=== PATIENT | female | born 1960 | race Two or more races ===

== ENCOUNTER 2016-07-10 23:16 | Emergency (ER) | payer OTHER ==
[~2016-07-10] VITALS: Ht 167.6 cm; Wt 63.5 kg
[~2016-07-10 23:16] MED LIST: HYDR25TA4 PO; MELO-264 PO
--- NOTE | 2016-07-10 23:45 | NUR ---
56 YO FEMALE BB FAMILY. PT IS ALERT X 3, C/O HIGH BP ALL DAY WITH HEADACHE/ NECK PAIN. PT STATES SHE TOOK HER USUAL LISINOPRIL HCTZ 20-25 TODAY, HER BP WAS STILL HIGH, THEN TOOK A SECOND DOSE. PT DENIES ANY CHEST PAIN, N/V, SOB. PT AMBULATED TO ER BED WITH STEADY GAIT, SKIN WARM AND DRY, RR EVENA N DUNLABORED. AWAITING ORDERS FROM PROVIDER, WILL CONTINUE TO MONITOR
--- NOTE | 2016-07-10 23:59 | NUR ---
URINE SAMPLE OBTAINED AND SENT TO LAB
--- NOTE | 2016-07-11 00:15 | NUR ---
DAUGHTER AT BEDSIDE TO TRANSLATE. PT STATES SHE TOOK LISINOPRIL 20-25MG 1 TAB PO AT 7PM
[2016-07-11] MEDS ORDERED: HYDROCODONE/APAP 5/325MG 1 EACH TABLET ONE (00:31)
[2016-07-11] MEDS ORDERED: IBUPROFEN 600 MG TABLET PO ONE (00:32)
[2016-07-11] MEDS: HYDROCODONE/APAP 5/325MG 1 EACH TABLET PO ONE (00:38)
[2016-07-11] MEDS: IBUPROFEN 600 MG TABLET PO ONE (00:38)
--- NOTE | 2016-07-11 01:03 | NUR ---
Patient discharged to home in stable condition. Written and verbal after care instructions given. Patient verbalizes understanding of instruction. ambulatory with a steady gait. pt accompanied by daughter.
[2016-07-11 01:04] VITALS: BP 130/86
== END 2016-07-11 01:05 | disposition home or self-care (01) ==
LOC: ER 23:16
DX: I10 Essential (primary) hypertension (principal); R51 Headache; G89.29 Other chronic pain; M79.1 Myalgia
CPT/HCPCS: A4606; Z7610

== ENCOUNTER 2016-09-27 13:10 | Emergency (ER) | payer OTHER ==
[~2016-09-27] VITALS: Ht 167.6 cm; Wt 59.0 kg
[2016-09-27 13:12] VITALS: BP 156/99
[2016-09-27] MEDS ORDERED: KETOROLAC TROMETHAMINE INJ 60 MG/2 ML VIAL IM ONE (13:30)
[2016-09-27] MEDS ORDERED: KETOROLAC TROMETHAMINE INJ 30 MG/ML VIAL ONE (13:30)
== END 2016-09-27 13:49 | disposition home or self-care (01) ==
LOC: ER 13:11
DX: M51.26 Other intervertebral disc displacement, lumbar region (principal); I10 Essential (primary) hypertension; M19.90 Unspecified osteoarthritis, unspecified site
CPT/HCPCS: A4606; J1885; Z7610

== ENCOUNTER 2016-09-30 23:01 | Emergency (ER) | payer OTHER ==
[~2016-09-30] VITALS: Ht 167.6 cm; Wt 65.8 kg
[2016-09-30 23:03] VITALS: BP 158/93
--- NOTE | 2016-09-30 23:56 | NUR ---
Called to rm, sleeping in WR.
[2016-10-01] MEDS ORDERED: DEXAMETHASONE SOD PHOSPHATE 10 MG/ML VIAL ONE (01:23)
[2016-10-01] MEDS ORDERED: KETOROLAC TROMETHAMINE INJ 30 MG/ML VIAL ONE (01:23)
--- NOTE | 2016-10-01 01:29 | NUR ---
PT MEDICATED ORDERED.
[2016-10-01] MEDS ORDERED: DEXAMETHASONE SOD PHOSPHATE 4 MG/ML VIAL IM ONE (01:30)
[2016-10-01] MEDS ORDERED: KETOROLAC TROMETHAMINE INJ 60 MG/2 ML VIAL IM ONE (01:30)
== END 2016-10-01 02:10 | disposition home or self-care (01) ==
LOC: ER 23:04
DX: M51.26 Other intervertebral disc displacement, lumbar region (principal); M54.32 Sciatica, left side; I10 Essential (primary) hypertension
CPT/HCPCS: A4606; J1100; J1885; Z7610

== ENCOUNTER 2017-08-19 21:56 | Emergency (ER) | payer OTHER ==
[~2017-08-19] VITALS: Ht 167.6 cm; Wt 59.0 kg
[~2017-08-19 21:56] MED LIST changes: +MELO-107 PO; -MELO-264 PO
--- NOTE | 2017-08-19 22:02 | NUR ---
TO BED 9 BIB PARMAEDICS C/O FLU LIKE SYMPTOM X3 DAYS, HIGH BLOOD PRESSURE TODAY. PT AAOX4 NO ACUTE DISTRESS NOTED, RESP EVEN AND UNLABORED. PLACE PT ON CARDIAC MONITORING, CONTINUOUS POX. PENDING ER MD AVENDAÑO.
--- NOTE | 2017-08-19 22:05 | NUR ---
ER MD AT BEDSIDE TO EVAL PT WITH ORDERS RECEIVED.
--- NOTE | 2017-08-19 22:15 | NUR ---
PT FAMILY MEMBERS AT BEDSIDE.
[2017-08-19] MEDS ORDERED: hydrALAZINE HCL IV 20 MG VIAL IV ONE (22:30)
[2017-08-19] MEDS ORDERED: hydrALAZINE HCL IV 20 MG VIAL ONE (22:34)
--- NOTE | 2017-08-19 22:40 | NUR ---
RN AT BEDSIDE TO MEDICATE PT.
[2017-08-19 22:52] LABS: BASOPHILS % (AUTO) 0.2 % (0.0-2.0); EOSINOPHILS % (AUTO) 0.2 % (0.0-6.0); HEMATOCRIT 39 % (33-45); HEMOGLOBIN 12.9 g/dL (11.5-14.8); LYMPHOCYTES # (AUTO) 2.7 /CMM (0.8-4.8); LYMPHOCYTES % (AUTO) 35.8 % (20.0-44.0); MEAN CORPUSCULAR HEMOGLOBIN 29 PG (26.0-33.0); MEAN CORPUSCULAR HGB CONC 33 g/dl (31.0-36.0); MEAN CORPUSCULAR VOLUME 87 fL (82-100); MONOCYTES # (AUTO) 0.6 /CMM (0.1-1.30); MONOCYTES % (AUTO) 7.3 % (2.0-12.0); NEUTROPHILS # (AUTO) 4.3 /CMM (1.8-8.9); NEUTROPHILS % (AUTO) 56.5 % (43.0-81.0); PLATELET COUNT (AUTO) 299 /CMM (150-450); RDW COEFFICIENT OF VARIATION 13.3 (11.5-15.0); RED BLOOD CELL COUNT(AUTO) 4.48 MIL/uL (4.0-5.2); WHITE BLOOD COUNT (AUTO) 7.6 K/uL (4.3-11.0)
[2017-08-19 22:58] LABS: CALCIUM, SERUM 9.2 mg/dL (8.5-10.1); CARBON DIOXIDE 26 mmol/L (21-32); CHLORIDE 96 mmol/L (98-107); CREATININE 0.7 mg/dL (0.6-1.3); GLUCOSE 117 mg/dL (74-106); POTASSIUM 3.6 mmol/L (3.5-5.1); SODIUM SERUM 131 mmol/L (136-145); UREA NITROGEN, BLOOD 13 mg/dL (7-18)
[2017-08-19 23:05] LABS: TROPONIN I < 0.017 ng/mL (0.00-0.056)
[2017-08-19 23:10] LABS: B-TYPE NATRIURETIC PEPTIDE 121 PG/ML (0-125)
[2017-08-19 23:13] LABS: INR 0.93 (0.87-1.13)
--- NOTE | 2017-08-20 00:47 | NUR ---
PT RESTING QUIETLY, NO ACUTE DISTRESS NOTED, RESP EVEN AND UNLABORED. CALL LIGHT WITHIN REACH. PT FAMILY MEMBERS REMAINS AT BEDSIDE.
[2017-08-20] MEDS ORDERED: ACETAMINOPHEN ES 500 MG TABLET ONE (00:53)
[2017-08-20] MEDS ORDERED: ACETAMINOPHEN ES 500 MG TABLET PO ONE (01:00)
--- NOTE | 2017-08-20 01:28 | NUR ---
IV removed. Catheter intact and site benign. Pressure and 4x4 applied to site. No bleeding noted. Patient discharged to home in stable condition. Written and verbal after care instructions given. Patient verbalizes understanding of instruction. ambulatory with a steady gait noted. pt aaox4 no acute distress noted, resp even and unlabored. pt family members at [facility] to take pt home.
[2017-08-20 01:29] VITALS: BP 158/61
== END 2017-08-20 01:30 | disposition home or self-care (01) ==
LOC: ER 21:58
DX: R51 Headache (principal); I10 Essential (primary) hypertension; R79.1 Abnormal coagulation profile; R07.9 Chest pain, unspecified
CPT/HCPCS: 36415; 71045; 80048; 83880; 84484; 85025; 85730; 93005; 96374; 99285; A4606; J0360; Z7610